=== PATIENT | male | born 1940 | race Caucasian/White ===

== ENCOUNTER → 2018-06-20 | Outpatient (CLI) | payer OTHER ==
[~2018-06-20] MED LIST: ASPIR-TRIN325 MG PO; COLACE100 MG PO; CYANOCOBAL1000 MCG/1 IM; EFFIENT10 MG PO; GEMFIBROZIL 60600 MG PO; LIPITOR 20 MG T20 M1 PO; LISINOPRIL5 MG PO; PREDNISONE 5 MG5 M1 PO; TOPROL XL25 MG PO; ZESTRIL2.5 MG PO; ZOCOR20 MG PO
== END ==
LOC: ULTRA 13:20
DX: M79.89 Other specified soft tissue disorders (principal); M79.605 Pain in left leg

== ENCOUNTER → 2018-08-09 | Outpatient (CLI) | payer OTHER | LOC: RAD 11:37 | DX: M54.5 Low back pain (principal); M54.6 Pain in thoracic spine; M54.2 Cervicalgia; I48.91 Unspecified atrial fibrillation; V89.2XXA Person injured in unspecified motor-vehicle accident, traffic, initial encounter; Y93.89 Activity, other specified; Y92.89 Other specified places as the place of occurrence of the external cause; Y99.8 Other external cause status ==

== ENCOUNTER → 2019-12-17 | Outpatient (CLI) | payer OTHER | LOC: SJCVCIMAG 13:36 | DX: R94.31 Abnormal electrocardiogram [ECG] [EKG] (principal); I45.10 Unspecified right bundle-branch block; I25.10 Atherosclerotic heart disease of native coronary artery without angina pectoris; E78.00 Pure hypercholesterolemia, unspecified; I10 Essential (primary) hypertension; E11.59 Type 2 diabetes mellitus with other circulatory complications; J44.9 Chronic obstructive pulmonary disease, unspecified; Z95.5 Presence of coronary angioplasty implant and graft; Z79.899 Other long term (current) drug therapy ==

== ENCOUNTER → 2020-01-29 | Outpatient (CLI) | payer OTHER ==
[~2020-01-29] MED LIST changes: +ASA81BEC PO; +ASPIRIN325 PO; +BENICAR40 MG PO; +DULOXETINE HCL30 MG PO; +ROSUVASTATIN CA10 MG PO
== END ==
LOC: LAB 09:31
PROVIDERS: ATTEND Neuromusculoskeletal Medicine & OMM
DX: Z20.828 Contact with and (suspected) exposure to other viral communicable diseases (principal)

== ENCOUNTER 2020-02-24 03:30 | Inpatient (IN) | payer OTHER ==
[2020-02-24] VITALS (13 sets, daily range): BP systolic 104–164; BP diastolic 52–77
[~2020-02-24] VITALS: Ht 177.8 cm; Wt 78.9 kg
[2020-02-24] MEDS ORDERED: ZPAK (03:43)
[2020-02-24 03:54] LABS: ABSOLUTE NEUTROPHILS 2.9 thou/uL (1.4-8.2); BASOPHILS 0.7 % (0.0-2.0); EOSINOPHILS 1.2 % (0.0-3.0); HEMATOCRIT 40.1 % (42.0-52.0); HEMOGLOBIN 13.1 gm/dL (14.0-18.0); LYMPHOCYTES 34.8 % (24.0-44.0); MCH 29.1 pg (26.0-34.0); MCHC 32.8 g/dL (28.0-37.0); MCV 88.7 fL (80.0-100.0); MONOCYTES 6.5 % (1.0-8.0); PLATELET COUNT 168 thou/uL (150-400); POLYS 56.8 % (36.0-66.0); RBC 4.52 mil/uL (4.50-6.00); RDW 13.6 % (10.5-14.5)
[2020-02-24 04:09] LABS: ANION GAP 7 mmol/L (7-16); BUN 19 mg/dL (7-18); CALCIUM 8.6 mg/dL (8.5-10.1); CHLORIDE 110 mmol/L (98-107); CO2 30 mmol/L (21-32); CREATININE 0.8 mg/dL (0.7-1.3); GLUCOSE 143 mg/dL (74-106); POTASSIUM 3.8 mmol/L (3.5-5.1); SODIUM 147 mmol/L (136-145)
[2020-02-24 04:19] LABS: ALBUMIN 3.6 g/dL (3.4-5.0); LIPASE 197 U/L (73-393); SGOT 17 U/L (15-37); SGPT 26 U/L (30-65); TOTAL BILIRUBIN 0.4 mg/dL (0.2-1.0); TOTAL PROTEIN 6.5 g/dL (6.4-8.2); TROPONIN-I <0.06 ng/mL (<0.06)
--- NOTE | 2020-02-24 07:22 | NUR ---
PATIENT TRANSFERRED FROM ED TO FLOOR AT APPROXIMATELY 0605. HEAD BONE GRINDER APPLIED. INITIATED ADMISSION. PATIENT STATES THAT CHEST PAIN STOPPED IN TRANSIT TO HOSPITAL. NO C/O PAIN AT ASSESSMENT.
--- NOTE | 2020-02-24 08:07 | EKG ---
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 : 1940 Requested By: Elliot Jacobo Order Number: [id number] MD: Castillo Sampson Measurements Intervals [place] Rate: 52 P: 19 [place]: 165 QRS: -22 QRSD: 108 T: -14 QT: 469 QTc: 437 Interpretive Statements Sinus bradycardia Borderline left axis deviation Nonspecific T abnormalities, diffuse leads Compared to ECG 11/13/2019 08:21:41 Nonspecific change in the T wave abnormality Electronically Signed On 02-24-2020 8:07:19 CDT by Castillo Sampson [email or web address] <ELECTRONICALLY SIGNED> By: Castillo Sampson MD, [facility] 02/24/20 0807 [phone] Castillo Sampson MD, [facility] /EPI
[2020-02-24 08:37] LABS: CHOLESTEROL 108 mg/dL (<200); HDL CHOLESTEROL 59 mg/dL (>40); LDL CHOLESTEROL 29 mg/dL (<100); TC:HDL 1.8 Ratio (Not establshd); TRIGLYCERIDE 100 mg/dL (<150); VLDL 20 mg/dL (<40)
--- NOTE | 2020-02-24 10:02 | NUR ---
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
[2020-02-25 00:11] VITALS: BP 138/73
--- NOTE | 2020-02-25 04:48 | NUR ---
Assumed pt care at 1900. Pt is alert and oriented. No sign of distress noted in pt. Denies any pain. Pt is laying in bed. Assessment completed and documented. Scheduled med administered to pt. Groin site is intact, clean and dry. No acute events overnight. Continue to monitor pt. No further needs at this time.
[2020-02-25 05:38] VITALS: BP 123/56
[2020-02-25 05:47] LABS: ALBUMIN 3.3 g/dL (3.4-5.0); CALCIUM 8.5 mg/dL (8.5-10.1); POTASSIUM 3.7 mmol/L (3.5-5.1); TOTAL BILIRUBIN 0.5 mg/dL (0.2-1.0); TOTAL PROTEIN 5.5 g/dL (6.4-8.2); TROPONIN-I 0.38 ng/mL (<0.06)
[2020-02-25 06:05] LABS: ABSOLUTE NEUTROPHILS 4.5 thou/uL (1.4-8.2); BASOPHILS 0.3 % (0.0-2.0); EOSINOPHILS 1.2 % (0.0-3.0); HEMATOCRIT 36.1 % (42.0-52.0); HEMOGLOBIN 12.1 gm/dL (14.0-18.0); LYMPHOCYTES 16.7 % (24.0-44.0); MCH 29.7 pg (26.0-34.0); MCHC 33.4 g/dL (28.0-37.0); MCV 88.9 fL (80.0-100.0); MONOCYTES 7.5 % (1.0-8.0); PLATELET COUNT 161 thou/uL (150-400); POLYS 74.3 % (36.0-66.0); RBC 4.06 mil/uL (4.50-6.00); RDW 13.3 % (10.5-14.5); WBC 6.1 thou/uL (4.0-11.0)
[2020-02-25 07:12] VITALS: BP 126/64
--- NOTE | 2020-02-25 07:41 | EKG ---
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 : 1940 Requested By: Tony Blackwell Order Number: [id number] MD: Thomas Stubbs Measurements Intervals [place] Rate: 51 P: 14 [place]: 163 QRS: -28 QRSD: 97 T: 8 QT: 501 QTc: 462 Interpretive Statements Sinus rhythm Borderline left axis deviation Borderline low voltage, extremity leads Nonspecific T abnrm, anterolateral leads Compared to ECG 02/24/2020 03:34:04 Sinus bradycardia no longer present T-wave abnormality no longer present Electronically Signed On 02-25-2020 7:40:48 CDT by Thomas Stubbs [email or web address] <ELECTRONICALLY SIGNED> By: Thomas Stubbs MD, [facility] 02/25/20739 4 4 Thomas Stubbs MD, [facility] /EPI
[2020-02-25 09:59] VITALS: BP 126/64
--- NOTE | 2020-02-25 10:39 | NUR ---
DISCHARGING TO HOME. DENIES CP. AT BEDSIDE. FROM UNIT BY ELLY.
--- NOTE | 2020-02-25 17:39 | CATHLAB ---
[facility] [place] [address] INVASIVE PROCEDURE REPORT Name: JUAN PABLO QUINTERO Room #: 213-P DIS IN M.R.#: [id number] Admission: 02/24/20 Attend Phys: Felix Jiménez MD Discharge: 02/25/20 Date of : 44 Report #: [id number] THIS REPORT FOR: cc: Bridger Marquez Steven F. DO Mancuso, Gerald M. MD [facility] ~ APPROVED REPORT Study performed: 02/24/2020 09:17:57 Patient Details Patient Status: In-Patient Room #: 213 The patient is a 79 year-old male Event Personnel Tony Blackwell Public Health Training Assistant, Nina Alvarez Partnoy, Nancy RTR, BUS AIDE Monitor, Ariel Hernandez RTR Monitor, Armando Griggs RN production grip Performed Art Access - R femoral artery* Left Heart Cath w/or w/o Coronaries 1126937 [facility] Place w/wo Plasty Single LAD 746405 Hemostasis w/ Mynx 49642 Initial Mod Sed Same Phys/QHP Gr5y 906990 44419 Mod Sed Same Phys/QHP Ea 243710 Indication Chest pain Procedure Narrative The Right Groin^ was infiltrated with 1% Lidocaine subcutaneous anesthesia. A PINNACLE 6FR TIF Sheath #[id number] sheath was inserted into the RFA^. Coronary angiography was performed using coronary diagnostic catheters. The right coronary system was accessed and visualized with a JR4 catheter. The left coronary system was accessed and visualized with a JL4 catheter. The left ventricle was accessed and visualized with a PIGTAIL catheter. Left ventricular/Aortic Valve gradient assessed via catheter pullback. Left ventriculogram was performed in 30 degree projection. Closure device was deployed with a 6 Fr MYNX CONTROL 6F/7F L#[id number]. The patient tolerated the procedure well and there were no complications associated with the procedure. There was no hematoma. Intraoperative Conscious Sedation Sedation start time: 10:29 Case end Time: [facility] [address] [place] [address] INVASIVE PROCEDURE REPORT Name: JUAN PABLO QUINTERO Kamila Room #: 213-P [facility]#: [id number] Admission: 02/24/20 Attend Phys: Felix Jiménez MD Discharge: 02/25/20 Date of : 44 Report #: [id number] 11:35 Fentanyl 100 mcg Versed 2.0 mg Fluoro Time: 16.10 minutes Dose: DAP 99899.60 cGycm2 2628 mGy Contrast Type and Amount: Omnipaque 185 ml Hemodynamics The aortic pressure is 138/51 mmHg with a mean of 73 mmHg. The left ventricular pressure is 146/4 mmHg with a mean of mmHg. The left ventricular end diastolic pressure is 20 mmHg. PCI Technique Lesion Percutaneous coronary intervention was performed on the proximal left anterior descending artery segment. A 6FR LAUNCHER EBU 3.0 #[id number] Guide Catheter was used to engage the ostium. A Luge Wire .014 x 182CM #[id number] Interventional Guidewire was used to cross the lesion. BALLOON DILATION A Balloon catheter Sprinter OTW 2.5 x 15 #[id number] was inserted and inflated up to 14.00atm for 33seconds. Additional Inflation: 18.00atm for 28seconds. STENT DEPLOYMENT A drug-eluting stent RESOLUTE SRINATH OTW 3.0 X 15 #[id number] was inserted and inflated up to 16.00atm for 48seconds. POST STENT DEPLOYMENT BALLOON DILATION A Balloon catheter TREK NC OTW 3.25 X 12 #[id number] was inserted and inflated up to 18.00atm for 25seconds. Additional Inflation: 20.00atm for 17seconds. Conclusion #1. Successful PTCA stent of a long proximal LAD eccentric 80% stenosis to 0% with a 3.0 x 15 resolute drug-eluting stent postdilated to 3.4 mm REYNALDO grade III flow a mid LAD lesion of 60 to 70% will follow. This 6 proximal to previously placed mid LAD stents LAD other carlton preserved around the apex. #2 left main with mild distal tapered narrowing giving rise to LAD and circumflex #3 circumflex OM is large proximal stent previously placed mild restenosis to marginal branch is widely patent. #4 dominant right coronary artery with a mild in-stent restenosis in the proximal mid vessel with preserved PDA LILIBETH. #5 normal left jugular size and systolic function EF [facility] [address] [place] [address] INVASIVE PROCEDURE REPORT Name: JUAN PABLO QUINTERO Room #: 213-P [facility] IN M.R.#: [id number] Admission: 02/24/20 Attend Phys: Felix Jiménez MD Discharge: 02/25/20 Date of : 44 Report #: [id number] 60% Recommendations and plan: Continue aggressive risk factor modification dual antiplatelet therapy. Transferred to CCU to follow post coronary stent protocol. <ELECTRONICALLY SIGNED> By: Tony Blackwell MD, FACC 02/25/20 1739 38 38 Tony Blackwell MD, FACC /INF
== END 2020-02-25 10:53 | disposition home or self-care (01) | DRG 246 ==
LOC: ER 03:30 → 2N 04:55 → EROBS 04:55 → 2N 05:57
PROVIDERS: Emergency Medicine; Internal Medicine Cardiovascular Disease; Nurse Practitioner; Nurse Practitioner Adult Health; ADMIT Hospitalist; ATTEND Hospitalist
PROC: 027034Z Dilation of Coronary Artery, One Artery with Drug-eluting Intraluminal Device, Percutaneous Approach (ICD-10-PCS; principal; 2020-02-24)
PROC: B2151ZZ Fluoroscopy of Left Heart using Low Osmolar Contrast (ICD-10-PCS; principal; 2020-02-24)
PROC: 4A023N7 Measurement of Cardiac Sampling and Pressure, Left Heart, Percutaneous Approach (ICD-10-PCS; principal; 2020-02-24)
PROC: B2111ZZ Fluoroscopy of Multiple Coronary Arteries using Low Osmolar Contrast (ICD-10-PCS; principal; 2020-02-24)
DX: I25.110 Atherosclerotic heart disease of native coronary artery with unstable angina pectoris (principal); I50.31 Acute diastolic (congestive) heart failure; E87.0 Hyperosmolality and hypernatremia; T82.855A Stenosis of coronary artery stent, initial encounter; I10 Essential (primary) hypertension; E78.5 Hyperlipidemia, unspecified; E11.9 Type 2 diabetes mellitus without complications; E78.00 Pure hypercholesterolemia, unspecified; Y83.8 Other surgical procedures as the cause of abnormal reaction of the patient, or of later complication, without mention of misadventure at the time of the procedure; Z79.899 Other long term (current) drug therapy; Z79.82 Long term (current) use of aspirin; Z95.5 Presence of coronary angioplasty implant and graft; I25.2 Old myocardial infarction; Y92.89 Other specified places as the place of occurrence of the external cause
CPT/HCPCS: 10081

== ENCOUNTER → 2020-07-01 | Outpatient (CLI) | payer OTHER ==
[~2020-07-01] MED LIST changes: +ZPAK
== END ==
LOC: SJCVC 14:30
PROVIDERS: ATTEND Internal Medicine Cardiovascular Disease
DX: R94.31 Abnormal electrocardiogram [ECG] [EKG] (principal); I25.10 Atherosclerotic heart disease of native coronary artery without angina pectoris; E78.00 Pure hypercholesterolemia, unspecified; R06.02 Shortness of breath; I10 Essential (primary) hypertension; E78.5 Hyperlipidemia, unspecified; Z95.828 Presence of other vascular implants and grafts; Z79.82 Long term (current) use of aspirin; Z79.899 Other long term (current) drug therapy; Z82.49 Family history of ischemic heart disease and other diseases of the circulatory system

== ENCOUNTER → 2020-08-24 | Outpatient (CLI) | payer OTHER | LOC: SJCVCIMAG 08:23 | PROVIDERS: ATTEND Internal Medicine Cardiovascular Disease | DX: I49.3 Ventricular premature depolarization (principal); R00.0 Tachycardia, unspecified; R07.89 Other chest pain; R06.00 Dyspnea, unspecified; I25.10 Atherosclerotic heart disease of native coronary artery without angina pectoris; E78.5 Hyperlipidemia, unspecified; I10 Essential (primary) hypertension; E11.9 Type 2 diabetes mellitus without complications; Z79.82 Long term (current) use of aspirin; Z79.899 Other long term (current) drug therapy ==

== ENCOUNTER → 2020-11-30 | Outpatient (CLI) | payer OTHER | LOC: NUC 11-24 11:42 | PROVIDERS: ATTEND Neuromusculoskeletal Medicine & OMM | DX: M85.88 Other specified disorders of bone density and structure, other site (principal); M81.0 Age-related osteoporosis without current pathological fracture ==

== ENCOUNTER → 2021-02-15 | Outpatient (CLI) | payer OTHER | LOC: SJCVC 14:23 | PROVIDERS: ATTEND Internal Medicine Cardiovascular Disease | DX: R94.31 Abnormal electrocardiogram [ECG] [EKG] (principal); I25.10 Atherosclerotic heart disease of native coronary artery without angina pectoris; I10 Essential (primary) hypertension; E78.00 Pure hypercholesterolemia, unspecified; E11.59 Type 2 diabetes mellitus with other circulatory complications; J44.9 Chronic obstructive pulmonary disease, unspecified; E78.5 Hyperlipidemia, unspecified; Z79.899 Other long term (current) drug therapy; Z79.82 Long term (current) use of aspirin ==

== ENCOUNTER 2021-05-18 06:54 | Emergency (ER) | payer OTHER ==
[~2021-05-18] VITALS: Ht 175.3 cm; Wt 77.1 kg
[2021-05-18 07:19] LABS: HEMATOCRIT 39.5 % (42.0-52.0); HEMOGLOBIN 12.8 gm/dL (14.0-18.0); MCH 28.9 pg (26.0-34.0); MCHC 32.4 g/dL (28.0-37.0); RBC 4.44 mil/uL (4.50-6.00); RDW 13.2 % (10.5-14.5); WBC 5.6 thou/uL (4.0-11.0)
[2021-05-18 07:26] LABS: CALCIUM 8.6 mg/dL (8.5-10.1); CREATININE 0.8 mg/dL (0.7-1.3); POTASSIUM 3.7 mmol/L (3.5-5.1)
[2021-05-18 07:36] LABS: ALBUMIN 3.5 g/dL (3.4-5.0); TOTAL BILIRUBIN 0.3 mg/dL (0.2-1.0); TOTAL PROTEIN 6.4 g/dL (6.4-8.2)
--- NOTE | 2021-05-18 07:58 | EKG ---
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 : 1940 Requested By: Marina Hartman Order Number: [id number] MD: Castillo Sampson Measurements Intervals [place] Rate: 58 P: 21 NM: 156 QRS: -8 QRSD: 103 T: 9 QT: 422 QTc: 415 Interpretive Statements Sinus bradycardia Abnormal R-wave progression, early transition Borderline T abnormalities, anterior leads Compared to ECG 02/25/2020 07:25:10 Nonspecific change in the T wave abnormality Electronically Signed On 05-18-2021 7:58:14 MANAGER OF CREATIVE SERVICES by Castillo Sampson [email or web address] <ELECTRONICALLY SIGNED> By: Castillo Sampson MD, [facility] 05/18/21 0758 0706 5 Castillo Sampson MD, FACC /EPI
[2021-05-18 09:25] VITALS: BP 154/76
== END 2021-05-18 09:25 | disposition home or self-care (01) ==
LOC: ER 06:54
PROVIDERS: Student in an Organized Health Care Education/Training Program
DX: M79.602 Pain in left arm (principal); R06.00 Dyspnea, unspecified; I25.2 Old myocardial infarction; I10 Essential (primary) hypertension; Z79.82 Long term (current) use of aspirin; Z79.899 Other long term (current) drug therapy

== ENCOUNTER → 2021-06-14 | Outpatient (CLI) | payer OTHER ==
[~2021-06-14] VITALS: Ht 175.3 cm; Wt 75.3 kg
[~2021-06-14] MED LIST changes: +ADVIL200 M3 PO; +ALLEGRA-D 24 H1 EACH PO; +FLEXERIL PO; +SYMBICORT80 MCG/4.1 INH
[2021-06-14 13:17] VITALS: BP 147/83
--- NOTE | 2021-06-14 13:44 | NUR ---
Pain Clinic Assessment: 1. History of Osteoarthritis: History of Rheumatoid Arthritis: 2. Height: 5 ft. 9 in. 175.3 cm. Weight: 166.0 lb. oz. 75.297 kg. Patient's BMI: 24.5 3. Vital Signs: BP: 147/83 Pulse: 73 Resp: 16 Temp: 02 Sat: 98 ECG Mon: 4. Pain Intensity: 7-8 5. Fall Risk: Dizziness: Y Needs help standing or walking: N Fallen in the last 3 months: N Fall risk comments: 6. Patient on Blood Thinner: EFFIENT 7. History of Hypertension: Y 8. Opioid Therapy greater than 6 weeks: N Opiate Contract Signed: 9. Risk Assessment Tool Provided: 0 LOW RISK 10. Functional Assessment Tool: 11. Recreational Drug Use: Never Drug Type: Tobacco Use: Never Smoker Tobacco Type: Amount or Packs/day: How Many Years: Alcohol Use: No Frequency: Quant:
== END ==
LOC: PAIN 07:28
PROVIDERS: ATTEND Anesthesiology Pain Medicine
DX: M47.812 Spondylosis without myelopathy or radiculopathy, cervical region (principal); M79.602 Pain in left arm; M79.601 Pain in right arm; I10 Essential (primary) hypertension; E78.5 Hyperlipidemia, unspecified

== ENCOUNTER → 2021-06-24 | Outpatient (CLI) | payer OTHER ==
[2021-06-24 11:59] LABS: CREATININE 0.9 mg/dL (0.7-1.3)
== END ==
LOC: MRI 06-18 08:51
PROVIDERS: ATTEND Anesthesiology Pain Medicine
DX: G93.89 Other specified disorders of brain (principal); R26.1 Paralytic gait

== ENCOUNTER → 2021-07-26 | Outpatient (CLI) | payer OTHER ==
[~2021-07-26] VITALS: Ht 175.3 cm; Wt 75.8 kg
[2021-07-26 09:31] VITALS: BP 154/85
--- NOTE | 2021-07-26 09:42 | NUR ---
Pain Clinic Assessment: 1. History of Osteoarthritis: History of Rheumatoid Arthritis: 2. Height: 5 ft. 9 in. 175.3 cm. Weight: 167.0 lb. oz. 75.751 kg. Patient's BMI: 24.7 3. Vital Signs: BP: 154/85 Pulse: 66 Resp: 18 Temp: 02 Sat: 100 ECG Mon: 4. Pain Intensity: 5 5. Fall Risk: Dizziness: N Needs help standing or walking: Y Fallen in the last 3 months: N Fall risk comments: 6. Patient on Blood Thinner: EFFIENT 7. History of Hypertension: Y 8. Opioid Therapy greater than 6 weeks: N Opiate Contract Signed: 9. Risk Assessment Tool Provided: 0 LOW RISK 10. Functional Assessment Tool: 11. Recreational Drug Use: Never Drug Type: Tobacco Use: Never Smoker Tobacco Type: Amount or Packs/day: How Many Years: Alcohol Use: No Frequency: Quant:
== END | disposition home or self-care (01) ==
LOC: PAIN 06:52
PROVIDERS: ATTEND Anesthesiology Pain Medicine
DX: M54.12 Radiculopathy, cervical region (principal); G89.29 Other chronic pain; I48.91 Unspecified atrial fibrillation; I25.10 Atherosclerotic heart disease of native coronary artery without angina pectoris; Z98.890 Other specified postprocedural states; Z79.899 Other long term (current) drug therapy